=== PATIENT | male | born 1945 | race African-American/Black ===

== ENCOUNTER 2017-11-03 10:49 | Inpatient (IN) | payer MEDICARE, MEDICAID ==
[~2017-11-03] VITALS: Ht 190.5 cm; Wt 86.2 kg
[2017-11-03] MEDS ORDERED: SODIUM CHLORIDE 0.9% 1,000 ML IV ONE (11:26)
[2017-11-03 12:54] LABS: BASOPHILS % 0.5 % (0.0-2.0); HEMATOCRIT. 43.8 % (42.0-52.0); HEMOGLOBIN. 14.5 g/dL (14.0-18.0); LYMPHOCYTES % 16.1 % (20.0-50.0); MEAN CORPUSCULAR HEMOGLOBIN 30.6 pg (28.0-32.0); MEAN CORPUSCULAR VOLUME 92.2 fL (80.0-94.0); MEAN PLATELET VOLUME 8.1 fl (7.4-10.4); MONOCYTES % 8.3 % (2.0-8.0); NEUTROPHILS % 73.1 % (40.0-76.0); PLATELET 222 x1000/uL (130-400); RED BLOOD CELL COUNT 4.75 mill/uL (4.7-6.1); RED CELL DISTRIBUTION WIDTH 14.5 % (11.6-14.6)
[2017-11-03 12:59] LABS: PROTHROMBIN TIME 10.2 sec (9.1-11.1)
[2017-11-03 13:00] LABS: CHLORIDE 106 mEq/L (98-107)
[2017-11-03 13:07] LABS: ETHANOL BLOOD < 10 mg/dL
[2017-11-03 14:01] LABS: COLOR URINE AMBER (YELLOW); KETONES URINE 1+ (NEGATIVE); LEUKOCYTE ESTERASE URINE NEGATIVE (NEGATIVE); NITRITE URINE NEGATIVE (NEGATIVE); OCCULT BLOOD URINE NEGATIVE (NEGATIVE); PROTEIN URINE NEGATIVE (NEGATIVE); SPECIFIC GRAVITY URINE 1.014 (1.005-1.030)
[2017-11-03 14:03] LABS: CLARITY URINE CLEAR (CLEAR)
[2017-11-03 14:15] LABS: *AMPHETAMINES SCREEN URINE NEGATIVE (NEGATIVE); *BARBITURATES SCREEN URINE NEGATIVE (NEGATIVE); *BENZODIAZEPINES SCREEN URINE NEGATIVE (NEGATIVE); *COCAINE SCREEN URINE PRESUMTIVE POSITIVE (NEGATIVE)
[2017-11-03 14:16] LABS: CANNABINOID URINE SCREEN NEGATIVE (NEGATIVE); METHADONE URINE SCREEN NEGATIVE (NEGATIVE); OPIATES URINE SCREEN PRESUMTIVE POSITIVE (NEGATIVE); PHENCYCLIDINE URINE SCREEN NEGATIVE (NEGATIVE)
[2017-11-03 16:47] VITALS: BP 144/100
[2017-11-03] MEDS ORDERED: LOSA50TA20 PO (17:16)
[2017-11-03] MEDS ORDERED: FERR325T6 PO (17:16)
[2017-11-03] MEDS ORDERED: FOLI-43 PO (17:16)
[2017-11-03] MEDS ORDERED: DIPH25TA23 PO (17:16)
[2017-11-03] MEDS ORDERED: ASPI-1159 PO (17:16)
[2017-11-03] MEDS ORDERED: FURO80TA87 PO (17:16)
[2017-11-03] MEDS ORDERED: TAMS0.4C31 PO (17:16)
[2017-11-03] MEDS ORDERED: POTA10CA42 PO (17:16)
[2017-11-03 17:50] VITALS: BP 145/105
[2017-11-03] MEDS ORDERED: TEMAZEPAM 15MG CAPSULE PO PRN (18:00)
[2017-11-03] MEDS ORDERED: ONDANSETRON HCL 4MG/2ML VIAL IV PRN (18:00)
[2017-11-03] MEDS ORDERED: MAGNESIUM/ALUMINUM HYDROXIDE/SIMETHICONE 30ML UDC PO PRN (18:00)
[2017-11-03] MEDS ORDERED: DIPHENHYDRAMINE 50MG/ML VIAL IV PRN (18:00)
[2017-11-03] MEDS ORDERED: MVI, ADULT NO.1 10 ML, FOLIC ACID 1 MG, THIAMINE HCL 100 MG in SODIUM CHLORIDE 0.9% 1,0... IV NR ×4 (20:00)
[2017-11-03 20:09] VITALS: BP 129/87
[2017-11-03] MEDS ORDERED: TAMSULOSIN HCL 0.4MG SR CAPSULE PO SCH (21:00)
[2017-11-03] MEDS: ACETAMINOPHEN 325MG TABLET PO PRN (23:07)
[2017-11-04 00:31] VITALS: BP 132/80
[2017-11-04 04:17] VITALS: BP 120/75
[2017-11-04 08:00] VITALS: BP 137/86
[2017-11-04] MEDS ORDERED: LOSARTAN POTASSIUM 50 MG TABLET PO SCH (09:00)
[2017-11-04] MEDS ORDERED: TAMSULOSIN HCL 0.4MG SR CAPSULE PO SCH (09:00)
[2017-11-04] MEDS ORDERED: FERROUS SULFATE 325MG TABLET PO SCH (09:00)
[2017-11-04] MEDS ORDERED: FOLIC ACID 1MG TABLET PO SCH (09:00)
[2017-11-04] MEDS ORDERED: ASPIRIN 81MG EC TABLET PO SCH (09:00)
[2017-11-04 09:42] LABS: BASOPHILS % 0.5 % (0.0-2.0); EOSINOPHILS % 4.4 % (0.0-5.0); HEMATOCRIT. 41.5 % (42.0-52.0); HEMOGLOBIN. 13.9 g/dL (14.0-18.0); LYMPHOCYTES % 27.1 % (20.0-50.0); MEAN CORPUSCULAR VOLUME 92.8 fL (80.0-94.0); MEAN PLATELET VOLUME 8.5 fl (7.4-10.4); MONOCYTES % 10.1 % (2.0-8.0); NEUTROPHILS % 57.9 % (40.0-76.0); PLATELET 209 x1000/uL (130-400); RED BLOOD CELL COUNT 4.47 mill/uL (4.7-6.1); RED CELL DISTRIBUTION WIDTH 14.4 % (11.6-14.6)
[2017-11-04] MEDS: ACETAMINOPHEN 325MG TABLET PO PRN (10:21)
[2017-11-04 11:09] LABS: CHLORIDE 108 mEq/L (98-107)
[2017-11-04 11:18] LABS: PHOSPHORUS 2.3 mg/dL (2.5-4.9)
[2017-11-04 12:00] VITALS: BP 130/77
[2017-11-04] MEDS ORDERED: POTASSIUM PHOS,M-BASIC-D-BASIC 10 MMOL in DEXT 5% WATER 246.6667 ML IV NR (15:30)
== END 2017-11-04 16:02 | disposition home or self-care (01) | DRG 918 ==
LOC: ER 12:23 → 6WST 13:23 → EDBEDREQTM 13:25 → EDBEDREQ 13:25 → ENRESERV 15:48
PROVIDERS: ADMIT Internal Medicine; ATTEND Internal Medicine
DX: T51.0X1A Toxic effect of ethanol, accidental (unintentional), initial encounter (principal); G90.8 Other disorders of autonomic nervous system; F10.10 Alcohol abuse, uncomplicated; F14.10 Cocaine abuse, uncomplicated; I10 Essential (primary) hypertension; I48.91 Unspecified atrial fibrillation; M19.90 Unspecified osteoarthritis, unspecified site; E86.0 Dehydration; T40.5X1A Poisoning by cocaine, accidental (unintentional), initial encounter; N40.0 Benign prostatic hyperplasia without lower urinary tract symptoms; Z59.0 Homelessness; Z72.0 Tobacco use; Z79.82 Long term (current) use of aspirin; Z79.899 Other long term (current) drug therapy; Z88.0 Allergy status to penicillin; Z88.8 Allergy status to other drugs, medicaments and biological substances; Y92.89 Other specified places as the place of occurrence of the external cause
CPT/HCPCS: 36415; 70450; 71045; 80048; 80053; 80305; 81003; 82962; 83605; 83690; 83735; 84100; 84484; 85025; 85610; 93005; 93306; 96360; 96361; 97162; 99285; G0482; J1200; J3411; J3490; J7030; J7060

== ENCOUNTER 2018-02-10 15:20 | Emergency (ER) | payer MEDICARE, MEDICAID ==
[~2018-02-10] VITALS: Ht 175.3 cm; Wt 90.0 kg
[~2018-02-10 15:20] MED LIST: ASPI-1159 PO; DIPH25TA23 PO; FERR325T6 PO; FOLI-43 PO; FURO80TA87 PO; LOSA50TA20 PO; POTA10CA42 PO; TAMS0.4C31 PO
[2018-02-10] MEDS ORDERED: ACETAMINOPHEN 325MG TABLET PO ONE (19:15)
[2018-02-10 21:03] LABS: BASOPHILS % 0.3 % (0.0-2.0); EOSINOPHILS % 1.4 % (0.0-5.0); HEMOGLOBIN. 13.6 g/dL (14.0-18.0); LYMPHOCYTES % 21.8 % (20.0-50.0); MEAN CORPUSCULAR HEMOGLOBIN 31.2 pg (28.0-32.0); MEAN CORPUSCULAR VOLUME 91.6 fL (80.0-94.0); MEAN PLATELET VOLUME 8.6 fl (7.4-10.4); MONOCYTES % 6.2 % (2.0-8.0); NEUTROPHILS % 70.3 % (40.0-76.0); PLATELET 197 x1000/uL (130-400); RED BLOOD CELL COUNT 4.36 mill/uL (4.7-6.1); RED CELL DISTRIBUTION WIDTH 13.7 % (11.6-14.6)
[2018-02-10 21:11] LABS: CHLORIDE 98 mEq/L (98-107)
[2018-02-10 21:30] LABS: PARTIAL THROMBOPLASTIN TIME 34.1 sec (23.4-31.0)
[2018-02-10 22:37] VITALS: BP 145/72
== END 2018-02-10 22:40 | disposition home or self-care (01) ==
LOC: ER 15:20
DX: B35.3 Tinea pedis (principal); M79.661 Pain in right lower leg; M79.662 Pain in left lower leg; I10 Essential (primary) hypertension; N40.0 Benign prostatic hyperplasia without lower urinary tract symptoms; Z79.82 Long term (current) use of aspirin; Z79.899 Other long term (current) drug therapy; Z88.0 Allergy status to penicillin; Z88.6 Allergy status to analgesic agent
CPT/HCPCS: 36415; 93970; 99284